=== PATIENT | male | born 1955 | race Caucasian/White ===

== ENCOUNTER 2022-01-28 10:40 | Emergency (ER) | payer MEDICARE ==
[2022-01-28] VITALS (13 sets, daily range): BP systolic 115–155; BP diastolic 45–82
[~2022-01-28] VITALS: Ht 180.3 cm; Wt 90.9 kg
[2022-01-28] MEDS ORDERED: METFORMIN HCL500 M2 PO (11:05)
[2022-01-28] MEDS ORDERED: XARELTO10 MG PO (11:05)
[2022-01-28] MEDS ORDERED: NOVOLOG100 UNIT (11:06)
[2022-01-28] MEDS ORDERED: LANTUS100 UNIT (11:06)
[2022-01-28 11:13] LABS: HEMATOCRIT 38.5 % (39.0-50.0); IMMATURE GRANULOCYTES 0.3 % (0.0-5.0); MEAN CELL VOLUME 88.7 fL CALC (80.0-100.0); MEAN CORPUSCULAR HGB CONC 33.8 g/dL CAL (32.0-36.0); NEUT# 3.86 thou/uL (1.82-7.42); RED BLOOD COUNT 4.34 mill/uL (4.70-6.10); RED CELL DISTRI WIDTH 14.5 % (11.5-15.5)
[2022-01-28 11:45] LABS: ALBUMIN 4.2 g/dL (3.2-5.0); ALKALINE PHOSPHATASE 65 u/l (38-126); ANION GAP 13 (6-22 (CALC)); BILIRUBIN, TOTAL 0.5 mg/dL (0.0-1.4); BUN 19 mg/dL (8-23); BUN/CREATININE RATIO 14 (12-20 (CALC)); CARBON DIOXIDE 25 mmol/l (22-30); CHLORIDE 105 mmol/l (95-108); CREATININE 1.3 mg/dL (0.7-1.3); GFR FOR AFR.AMER. > 60 ML/MIN (>=60 (CALC)); GFR OTHER RACES 55 ML/MIN (>=60 (CALC)); POTASSIUM 4.8 mmol/l (3.5-5.1); SGOT/AST 39 u/l (19-48); SODIUM 138 mmol/l (137-146)
== END 2022-01-28 15:45 | disposition left against medical advice (07) ==
LOC: ED 10:40
PROVIDERS: Family Medicine
DX: R07.9 Chest pain, unspecified (principal); I10 Essential (primary) hypertension; I48.91 Unspecified atrial fibrillation; E11.9 Type 2 diabetes mellitus without complications; Z79.4 Long term (current) use of insulin; Z79.01 Long term (current) use of anticoagulants; Z53.29 Procedure and treatment not carried out because of patient's decision for other reasons

== ENCOUNTER 2024-01-29 14:57 | Observation (INO) | payer MEDICARE ==
[~2024-01-29] VITALS: Ht 180.3 cm; Wt 86.0 kg
[2024-01-29] VITALS (22 sets, daily range): BP systolic 127–161; BP diastolic 69–96
[~2024-01-29 14:57] MED LIST: LANTUS100 UNIT; METFORMIN HCL500 M2 PO; NOVOLOG100 UNIT; XARELTO10 MG PO
[2024-01-29 15:50] LABS: BASO% 0.5 % (0-3); HEMATOCRIT 39.6 % (39.0-50.0); HEMOGLOBIN 12.4 g/dl (14.0-18.0); IMMATURE GRANULOCYTES 0.3 % (0.0-5.0); LYMPH% 17.1 % (15-41); MEAN CELL VOLUME 86.1 fL CALC (80.0-100.0); MEAN CORPUSCULAR HGB CONC 31.3 g/dL CAL (32.0-36.0); NEUT# 4.47 thou/uL (1.82-7.42); NEUT% 70.1 % (42-76); RED BLOOD COUNT 4.6 mill/uL (4.70-6.10); RED CELL DISTRI WIDTH 15.7 % (11.5-15.5)
[2024-01-29 16:00] LABS: ALBUMIN 4.5 g/dL (3.2-5.0); ALKALINE PHOSPHATASE 82 u/l (38-126); ANION GAP 17 (6-22 (CALC)); BILIRUBIN, TOTAL 0.7 mg/dL (0.2-1.3); BUN 19 mg/dL (8-23); BUN/CREATININE RATIO 14 (12-20 (CALC)); CARBON DIOXIDE 25 mmol/l (22-30); CHLORIDE 102 mmol/l (95-108); CREATININE 1.4 mg/dL (0.7-1.3); ESTIMATED GFR 54 ML/MIN (>=90 (CALC)); MAGNESIUM 2.2 mg/dL (1.6-2.3); POTASSIUM 4.5 mmol/l (3.5-5.1); SGOT/AST 35 u/l (19-48); SODIUM 139 mmol/l (137-146); TOTAL PROTEIN 7.6 g/dL (6.3-8.2)
[2024-01-29] MEDS ORDERED: XARELTO20 MG PO (17:37)
[2024-01-29] MEDS ORDERED: DILTIAZEM HYDR240 M1 (17:37)
[2024-01-29] MEDS ORDERED: LOPRESSOR 550 MG/TAB PO (17:38)
[2024-01-29] MEDS ORDERED: ALFUZOSIN HCL E10 MG PO (17:38)
[2024-01-29] MEDS ORDERED: METFORMIN500 M2 PO (17:42)
[2024-01-29] MEDS ORDERED: CARAFATE1 GM PO (17:42)
[2024-01-29] MEDS ORDERED: ALBUTEROL108 MCG/AC (17:42)
[2024-01-29] MEDS ORDERED: ROSUVASTATIN CA20 MG (17:43)
[2024-01-29] MEDS ORDERED: FAMOTIDINE40 M1 (17:44)
[2024-01-29] MEDS ORDERED: PROTONIX20 MG PO (17:44)
[2024-01-29] MEDS ORDERED: LANTUS SOL100 UNIT/M (17:45)
[2024-01-29] MEDS ORDERED: FLUCONAZOLE150 MG PO (17:46)
[2024-01-29] MEDS ORDERED: KENALOG15 GM/TUBE EX (17:47)
[2024-01-29] MEDS ORDERED: NOVOLOG FL100 UNIT/M (17:47)
[2024-01-29] MEDS ORDERED: CLOTRIMAZOLE10 MG (17:47)
[2024-01-29] MEDS ORDERED: XANAX1 MG PO (17:49)
[2024-01-29] MEDS ORDERED: ABILIFY5 MG PO (17:50)
[2024-01-29] MEDS ORDERED: LIDOCAINE21 MT (17:50)
[2024-01-29] MEDS ORDERED: ZOFRAN4 MG/TAB PO (17:51)
[2024-01-29] MEDS ORDERED: VENLAFAXINE HCL75 M1 PO (17:51)
[2024-01-29] MEDS ORDERED: ALDACTONE25 MG PO (17:51)
[2024-01-29] MEDS ORDERED: MAGNESIUM HYDROXIDE 30 ML UDC PO PRN (19:05)
[2024-01-29] MEDS ORDERED: SODIUM CHLORIDE 0.9% 1,000 ML IV PRN (19:05)
[2024-01-29] MEDS ORDERED: ACETAMINOPHEN 325 MG/TAB PO PRN (19:05)
[2024-01-29] MEDS ORDERED: ALPRAZolam 1 MG/TAB PO PRN (19:10)
[2024-01-29] MEDS ORDERED: INSULIN LISPRO 100 UNITS/ML ML SC SCH (21:00)
[2024-01-29] MEDS ORDERED: METOPROLOL TARTRATE 50 MG/TAB PO SCH (21:00)
[2024-01-30] VITALS (8 sets, daily range): BP systolic 139–171; BP diastolic 71–112
[2024-01-30 07:52] LABS: BASO% 0.6 % (0-3); EOS% 2.6 % (0-8); HEMATOCRIT 37.1 % (39.0-50.0); HEMOGLOBIN 11.6 g/dl (14.0-18.0); IMMATURE GRANULOCYTES 0.2 % (0.0-5.0); LYMPH% 14.3 % (15-41); MEAN CELL VOLUME 85.7 fL CALC (80.0-100.0); MEAN CORPUSCULAR HGB 26.8 pG CALC (26.0-32.0); MEAN CORPUSCULAR HGB CONC 31.3 g/dL CAL (32.0-36.0); MONO% 10.2 % (2-13); NEUT# 3.87 thou/uL (1.82-7.42); NEUT% 72.1 % (42-76); RED BLOOD COUNT 4.33 mill/uL (4.70-6.10); RED CELL DISTRI WIDTH 15.7 % (11.5-15.5)
[2024-01-30 07:58] LABS: ALBUMIN 3.8 g/dL (3.2-5.0); BILIRUBIN, TOTAL 0.5 mg/dL (0.2-1.3); CREATININE 1.2 mg/dL (0.7-1.3); POTASSIUM 4.6 mmol/l (3.5-5.1); TOTAL PROTEIN 6.1 g/dL (6.3-8.2)
[2024-01-30] MEDS ORDERED: DILTIAZEM HCl COATED BEADS 180 MG/CAP PO SCH (09:00)
[2024-01-30] MEDS ORDERED: VENLAFAXINE HYDROCHLORIDE 75 MG/CAP PO SCH (09:00)
[2024-01-30] MEDS ORDERED: PANTOPRAZOLE SODIUM Sesquihydr 40 MG/TAB PO SCH (09:00)
[2024-01-30] MEDS ORDERED: LOSARTAN Potassium 25 MG/TAB PO SCH (10:30)
[2024-01-30] MEDS ORDERED: METOPROLOL TARTRATE 25 MG/TAB PO SCH (10:30)
[2024-01-30] MEDS ORDERED: RIVAROXABAN 20 MG TAB PO SCH (17:00)
[2024-01-30] MEDS ORDERED: METOPROLOL TARTRATE 50 MG/TAB PO SCH (21:00)
[2024-01-30] MEDS ORDERED: SUCRALFATE 1 GM/TAB PO SCH (21:29)
[2024-01-31 00:06] VITALS: BP 155/77
[2024-01-31 00:34] VITALS: BP 155/77
[2024-01-31 04:30] VITALS: BP 152/79
[2024-01-31 04:38] VITALS: BP 152/79
[2024-01-31 05:36] LABS: BASO% 0.5 % (0-3); EOS% 2.1 % (0-8); HEMATOCRIT 34.9 % (39.0-50.0); HEMOGLOBIN 11.3 g/dl (14.0-18.0); IMMATURE GRANULOCYTES 0.2 % (0.0-5.0); MEAN CELL VOLUME 85.5 fL CALC (80.0-100.0); MEAN CORPUSCULAR HGB 27.7 pG CALC (26.0-32.0); MEAN CORPUSCULAR HGB CONC 32.4 g/dL CAL (32.0-36.0); MONO% 9.4 % (2-13); NEUT# 4.24 thou/uL (1.82-7.42); NEUT% 69.8 % (42-76); RED BLOOD COUNT 4.08 mill/uL (4.70-6.10); RED CELL DISTRI WIDTH 15.6 % (11.5-15.5)
[2024-01-31 05:38] LABS: URINE BILIRUBIN - DIPSTICK Negative (NEGATIVE); URINE BLOOD DIPSTICK Negative (NEGATIVE); URINE GLUCOSE - DIPSTICK Negative (NEGATIVE); URINE KETONE Negative (NEGATIVE); URINE LEUK ESTERASE Negative (NEGATIVE); URINE NITRITE - DIPSTICK Negative (Negative); URINE PROTEIN - DIPSTICK Trace mg/dL (NEG-TRACE); URINE UROBILINOGEN - DIPSTICK 0.2 E.U./dL (0.2)
[2024-01-31 05:42] LABS: URINE COLOR Yellow
[2024-01-31 05:47] LABS: ALBUMIN 3.5 g/dL (3.2-5.0); BILIRUBIN, TOTAL 0.4 mg/dL (0.2-1.3); CREATININE 1.1 mg/dL (0.7-1.3); MAGNESIUM 1.9 mg/dL (1.6-2.3); POTASSIUM 4.3 mmol/l (3.5-5.1); TOTAL PROTEIN 5.8 g/dL (6.3-8.2)
[2024-01-31 08:32] VITALS: BP 131/64
[2024-01-31 10:58] VITALS: BP 165/77
== END 2024-01-31 12:14 | disposition home or self-care (01) ==
LOC: ED 14:57 → ED-I 17:10 → ED 18:22 → MS2 18:23
PROVIDERS: Nurse Practitioner; Nurse Practitioner Family; ADMIT Internal Medicine; ATTEND Internal Medicine
DX: R07.9 Chest pain, unspecified (principal); R00.2 Palpitations; I48.0 Paroxysmal atrial fibrillation; E11.649 Type 2 diabetes mellitus with hypoglycemia without coma; I45.10 Unspecified right bundle-branch block; I10 Essential (primary) hypertension; J44.9 Chronic obstructive pulmonary disease, unspecified; J96.11 Chronic respiratory failure with hypoxia; I25.10 Atherosclerotic heart disease of native coronary artery without angina pectoris; Z87.891 Personal history of nicotine dependence; Z79.84 Long term (current) use of oral hypoglycemic drugs; Z79.4 Long term (current) use of insulin; Z79.01 Long term (current) use of anticoagulants; Z99.81 Dependence on supplemental oxygen; R06.02 Shortness of breath
CPT/HCPCS: G0378; J1815

== ENCOUNTER 2024-02-02 12:33 | Emergency (ER) | payer MEDICARE ==
[2024-02-02] VITALS (13 sets, daily range): BP systolic 93–157; BP diastolic 49–81
[~2024-02-02] VITALS: Ht 180.3 cm; Wt 90.7 kg
[~2024-02-02 12:33] MED LIST changes: +ABILIFY5 MG PO; +ALBUTEROL108 MCG/AC; +ALDACTONE25 MG PO; +ALFUZOSIN HCL E10 MG PO; +CARAFATE1 GM PO; +CLOTRIMAZOLE10 MG; +DILTIAZEM HYDR240 M1; +FAMOTIDINE40 M1; +FLUCONAZOLE150 MG PO; +KENALOG15 GM/TUBE EX; +LANTUS SOL100 UNIT/M; +LIDOCAINE21 MT; +LOPRESSOR 550 MG/TAB PO; +METFORMIN500 M2 PO; +NOVOLOG FL100 UNIT/M; +PROTONIX20 MG PO; +ROSUVASTATIN CA20 MG; +VENLAFAXINE HCL75 M1 PO; +XANAX1 MG PO; +XARELTO20 MG PO; +ZOFRAN4 MG/TAB PO
[2024-02-02] MEDS ORDERED: SODIUM CHLORIDE 0.9% 1,000 ML IV ONE ×2 (13:00→14:15)
[2024-02-02 13:40] LABS: BASO% 0.5 % (0-3); EOS% 1.4 % (0-8); HEMATOCRIT 37.3 % (39.0-50.0); HEMOGLOBIN 11.8 g/dl (14.0-18.0); IMMATURE GRANULOCYTES 0.3 % (0.0-5.0); LYMPH% 13.1 % (15-41); MEAN CELL VOLUME 84.8 fL CALC (80.0-100.0); MEAN CORPUSCULAR HGB 26.8 pG CALC (26.0-32.0); MEAN CORPUSCULAR HGB CONC 31.6 g/dL CAL (32.0-36.0); MONO% 8.4 % (2-13); NEUT# 5.06 thou/uL (1.82-7.42); NEUT% 76.3 % (42-76); RED BLOOD COUNT 4.4 mill/uL (4.70-6.10); RED CELL DISTRI WIDTH 15.5 % (11.5-15.5)
[2024-02-02 13:51] LABS: ALBUMIN 4.2 g/dL (3.2-5.0); ALKALINE PHOSPHATASE 67 u/l (38-126); ANION GAP 16 (6-22 (CALC)); BUN 18 mg/dL (8-23); BUN/CREATININE RATIO 12 (12-20 (CALC)); CARBON DIOXIDE 24 mmol/l (22-30); CHLORIDE 102 mmol/l (95-108); CREATININE 1.6 mg/dL (0.7-1.3); ESTIMATED GFR 46 ML/MIN (>=90 (CALC)); POTASSIUM 4.6 mmol/l (3.5-5.1); SGOT/AST 38 u/l (19-48); SODIUM 137 mmol/l (137-146)
[2024-02-02 14:01] LABS: BILIRUBIN, TOTAL 0.6 mg/dL (0.2-1.3)
[2024-02-02 16:10] LABS: URINE BILIRUBIN - DIPSTICK Negative (NEGATIVE); URINE BLOOD DIPSTICK Negative (NEGATIVE); URINE GLUCOSE - DIPSTICK Negative (NEGATIVE); URINE KETONE Negative (NEGATIVE); URINE LEUK ESTERASE Negative (NEGATIVE); URINE NITRITE - DIPSTICK Negative (Negative); URINE PH 5.5 (4.5-8.0); URINE PROTEIN - DIPSTICK Negative (NEG-TRACE); URINE SPECIFIC GRAVITY <=1.005; URINE UROBILINOGEN - DIPSTICK 0.2 E.U./dL (0.2)
[2024-02-02 16:11] LABS: URINE COLOR Yellow
== END 2024-02-02 17:00 | disposition home or self-care (01) ==
LOC: ED 12:33
PROVIDERS: Nurse Practitioner
DX: I95.1 Orthostatic hypotension (principal); E86.0 Dehydration; E11.9 Type 2 diabetes mellitus without complications; I48.91 Unspecified atrial fibrillation; J44.9 Chronic obstructive pulmonary disease, unspecified; Z99.81 Dependence on supplemental oxygen; Z79.84 Long term (current) use of oral hypoglycemic drugs